=== PATIENT | male | born 1985 | race Caucasian/White ===

== ENCOUNTER 2016-10-29 23:34 | Emergency (ER) | payer BC ==
[~2016-10-29 23:34] MED LIST: DULO60CA6 PO
[2016-10-30 00:14] VITALS: BP 153/89
[2016-10-30] MEDS ORDERED: CLIN150C14 PO (01:38)
[2016-10-30] MEDS ORDERED: CIPR500T94 PO (01:38)
--- NOTE | 2016-10-30 01:38 | PHYS DOC ---
Past Medical History Past Medical History: Depression Past Surgical History: No Surgical History Alcohol Use: None Drug Use: None Adult General Chief Complaint Chief Complaint: ANIMAL BITE HPI HPI Patient is a 31 year old male who presents with dog bite to the face that occurred today. Patient got bit by his own dog. Review of Systems Review of Systems Constitutional: Denies fever or chills [] Eyes: Denies change in visual acuity, redness, or eye pain [] HENT: Denies nasal congestion or sore throat [] Musculoskeletal: Denies back pain or joint pain [] Integument: dog bite to the fac Neurologic: Denies headache, focal weakness or sensory changes [] Allergies Allergies Allergies Coded Allergies Type Severity Reaction Last Updated Verified Cephalosporins Allergy Intermediate Unknown 08/29/14 Yes Physical Exam Physical Exam Constitutional: Well developed, well nourished, no acute distress, non-toxic appearance. [] HENT: Normocephalic, atraumatic, bilateral external ears normal, oropharynx moist, no oral exudates, nose normal. [] Eyes: PERRLA, EOMI, conjunctiva normal, no discharge. [] Skin: 2 cm superficial laceration noted to the right upper eyelid and right lateral facial area. Non need suturing. Back: No tenderness, no CVA tenderness. [] Extremities: No tenderness, no cyanosis, no clubbing, ROM intact, no edema. [] Neurologic: Alert and oriented X 3, normal motor function, normal sensory function, no focal deficits noted. [] Psychologic: Affect normal, judgement normal, mood normal. [] EKG EKG [] Radiology/Procedures Radiology/Procedures [] Course & Med Decision Making Course & Med Decision Making Pertinent Labs and Imaging studies reviewed. (See chart for details) Patient has dog bites to the face, none need suturing. Tetanus vaccine is up-to- date. Discharged with clindamycin and Cipro. Provided wound care instructions as well as return precautions. Discharged in stable condition. Dragon Disclaimer Dragon Disclaimer This electronic medical record was generated, in whole or in part, using a voice recognition dictation system. Departure Departure Impression: Primary Impression: Dog bite of face Disposition: HOME, SELF-CARE Condition: STABLE Referrals: REBECCA WARD MD (PCP) follow up with your doctor in 1-2 weeks Patient Instructions: Animal Bite, [id number] Additional Instructions: You were seen with dog bites to the face. Keep the areas clean and dry. Apply Neosporin to the areas twice a day. Take the prescribed antibiotics until completed. Follow-up with your doctor in 1-2 weeks. Come back to the emergency room at any point wound conditions worsen especially if you develop any fever, increased redness warmth or yellow drainage from the area. Scripts Ciprofloxacin Hcl (CIPRO) 500 Mg Tablet 1 TAB PO BID, #20 TAB Prov: ROMEO MARTÍNEZ APRN 10/30/16 Clindamycin Hcl (CLINDAMYCIN HCL) 150 Mg Capsule 3 CAP PO TID, #90 CAP Prov: ROMEO MARTÍNEZ APRN 10/30/16 Problem Qualifiers Primary Impression: Dog bite of face Encounter type: initial encounter Qualified Codes: S01.85XA - Open bite of other part of head, initial encounter; W54.0XXA - Bitten by dog, initial encounter ROMEO MARTÍNEZ APRN Oct 30, 2016 01:38
== END 2016-10-30 01:50 | disposition home or self-care (01) ==
LOC: ER 23:34
DX: S01.111A Laceration without foreign body of right eyelid and periocular area, initial encounter (principal); S01.81XA Laceration without foreign body of other part of head, initial encounter; F32.9 Major depressive disorder, single episode, unspecified; Z88.1 Allergy status to other antibiotic agents; W54.0XXA Bitten by dog, initial encounter; Y93.89 Activity, other specified; Y92.89 Other specified places as the place of occurrence of the external cause; Y99.8 Other external cause status
CPT/HCPCS: 99283